=== PATIENT | female | born 1985 | race African-American/Black ===

== ENCOUNTER 2025-09-12 14:35 | Emergency (ER) | payer MEDICAID, OTHER ==
[~2025-09-12] VITALS: Ht 157.5 cm; Wt 59.9 kg
[2025-09-12 14:38] VITALS: BP 151/98; TEMP 98.2; O2SAT 98
[2025-09-12] MEDS ORDERED: IBUPROFEN 600 MG TABLET ONE (15:14)
[2025-09-12] MEDS ORDERED: AMOX/CLAVULANATE 875 MG TABLET ONE (15:14)
[2025-09-12] MEDS: IBUPROFEN 600 MG TABLET PO ONE (15:15)
[2025-09-12] MEDS: AMOX/CLAVULANATE 875 MG TABLET PO ONE (15:15)
[2025-09-12] MEDS ORDERED: OFLO5DRO5 RIGHT EAR (15:34)
[2025-09-12] MEDS ORDERED: AMOX-430 PO (15:34)
[2025-09-12] MEDS ORDERED: IBUP-1490 PO (15:34)
== END 2025-09-12 15:53 | disposition home or self-care (01) ==
LOC: ER 15:51
DX: H66.91 Otitis media, unspecified, right ear (principal)